=== PATIENT | male | born 2000 | race Caucasian/White ===

== ENCOUNTER 2021-12-29 18:40 | Emergency (ER) | payer SELFPAY ==
--- NOTE | 2021-12-29 19:31 | RAD REPORT ---
EXAM DESCRIPTION: RAD - Hand Right 3 View - 12/29/2021 7:20 pm CLINICAL HISTORY: Right hand pain status post injury FINDINGS: No fracture or dislocation is seen.
--- NOTE | 2021-12-29 19:48 | ER ---
Nurse's Notes [facility] Name: Tobin Johnson Age: 21 yrs Sex: Male : 2000 Arrival Date: 12/29/2021 Time: 18:43 Bed 11 Private MD: Diagnosis: Contusion of right hand;Abrasion of right hand Presentation: 12/29 18:47 Chief complaint: Patient states: Shut R hand in gate door 1 hour [employer]. Abrasions to 4th ll1 and 5th digits. Concerned 5th digit may be broken. Coronavirus screen: Vaccine status: Patient reports being unvaccinated. Client denies travel out of the [place] in the last 14 days. At this time, the client does not indicate any symptoms associated with coronavirus-19. Ebola Screen: Patient denies travel to an Ebola-affected area in the 21 days before illness onset. Initial Sepsis Screen: Does the patient meet any 2 criteria? No. Patient's initial sepsis screen is negative. Does the patient have a suspected source of infection? Yes: Skin breakdown/wound. Risk Assessment: Do you want to hurt yourself or someone else? Patient reports no desire to harm self or others. Onset of symptoms was December 29, 2021. 18:47 Method Of Arrival: Ambulatory ll1 18:47 Acuity: JIMMY 4 ll1 Triage Assessment: 18:49 General: Appears uncomfortable, Behavior is calm, cooperative, appropriate for age. ll1 Pain: Complains of pain in right hand Quality of pain is described as aching. Musculoskeletal: Reports pain in right hand. Injury Description: Crush injury. Historical: - Allergies: 18:48 No Known Allergies; ll1 - PMHx: 18:48 None; ll1 - PSHx: 18:48 femur repair; ll1 - Immunization history:: Client reports receiving the 2nd dose of the Covid vaccine, Last tetanus immunization: < 10 years ago. - Social history:: Smoking status: Patient reports the use of cigarette tobacco products, denies chronic smoking, but will smoke occasionally. Screenin:54 Abuse screen: Denies threats or abuse. Denies injuries from another. Nutritional ph screening: No deficits noted. Tuberculosis screening: No symptoms or risk factors identified. Fall Risk None identified. Assessment: 19:53 General: Appears in no apparent distress. comfortable, Behavior is calm, cooperative, ph appropriate for age. Pain: Complains of pain in right hand. Neuro: No deficits noted. Derm: Skin is intact, Skin is pink, warm \T\ dry. Musculoskeletal: Circulation, motion, and sensation intact. Injury Description: Laceration sustained to dorsal aspect of middle phalanx of right middle finger, dorsal aspect of middle phalanx of right ring finger and dorsal aspect of middle phalanx of right little finger is superficial, 0.5 to 2.5 cm long, not bleeding. Vital Signs: 18:47 BP 145 / 79; Pulse 88; Resp 16; Temp 98.7; Pulse Ox 99% ; Weight 102.06 kg; Height 6 ll1 ft. 0 in. (182.88 cm); Pain 5/10; 18:47 Body Mass Index 30.52 (102.06 kg, 182.88 cm) ll1 ED Course: 18:43 Patient arrived in ED. mr 18:48 Triage completed. ll1 18:49 Arm band placed on. ll1 18:57 E[facility] Shelton [facility]NP-C [facility] kb 18:57 Berhane Tucker MD is Attending Physician. kb 19:22 Hand Right 3 View XRAY In Process Unspecified. EDMS 19:53 No provider procedures requiring assistance completed. Patient did not have IV access ph during this emergency room visit. Wound care: located on right hand was cleaned with Hibiclens, dressed with steri-strips, Patient tolerated well. 19:54 Patient has correct armband on for positive identification. ph Administered Medications: No medications were administered Medication: 19:54 VIS not applicable for this client. ph Outcome: 19:47 Discharge ordered by . kb 19:54 Discharged to home ambulatory. ph 19:54 Condition: good 19:54 Discharge instructions given to patient, Instructed on discharge instructions, follow up and referral plans. Demonstrated understanding of instructions, follow-up care. 19:55 Patient left the ED. ph Signatures: Dispatcher [employer] EDMS Erika Shelton FNP-C FNP-Ckb Rivera, Mary Lizzie Rogers RN RN ph Ming Sheriff RN RN ll1
--- NOTE | 2021-12-29 19:48 | EDPHYS ---
Physician Documentation [facility] Name: Tobin Johnson Age: 21 yrs Sex: Male : 2000 Arrival Date: 12/29/2021 Time: 18:43 Bed 11 Private MD: ED Physician Berhane Tucker HPI: 12/29 19:50 This 21 yrs old Male presents to ER via Ambulatory with complaints of Hand Injury. kb 19:50 The patient or guardian reports a contusion, pain. The complaints affect the dorsal kb aspect of proximal phalanx of right ring finger and dorsal aspect of proximal phalanx of right middle finger and dorsal aspect of proximal phalanx of right index finger. Context: The problem was sustained outdoors, resulted from shut gate on hand. Onset: The symptoms/episode began/occurred today. Modifying factors: The symptoms are alleviated by nothing, the symptoms are aggravated by nothing. Associated signs and symptoms: The patient has no apparent associated signs or symptoms. Severity of symptoms: At their worst the symptoms were mild, in the emergency department the symptoms are unchanged. The patient has not experienced similar symptoms in the past. The patient has not recently seen a physician. Historical: - Allergies: 18:48 No Known Allergies; ll1 - PMHx: 18:48 None; ll1 - PSHx: 18:48 femur repair; ll1 - Immunization history:: Client reports receiving the 2nd dose of the Covid vaccine, Last tetanus immunization: < 10 years ago. - Social history:: Smoking status: Patient reports the use of cigarette tobacco products, denies chronic smoking, but will smoke occasionally. ROS: 19:49 Constitutional: Negative for fever, chills, and weight loss. kb 19:49 Skin: Positive for abrasion(s), of the dorsal aspect of proximal phalanx of right index finger, dorsal aspect of proximal phalanx of right middle finger and dorsal aspect of proximal phalanx of right ring finger. 19:49 All other systems are negative. Exam: 19:50 Constitutional: This is a well developed, well nourished patient who is awake, alert, kb and in no acute distress. Head/Face: Normocephalic, atraumatic. ENT: Moist Mucous membranes Respiratory: Respirations even and unlabored. No increased work of breathing. Talking in full sentences MS/ Extremity: Pulses equal, no cyanosis. Neurovascular intact. Full, normal range of motion. Neuro: Awake and alert, GCS 15, oriented to person, place, time, and situation. Moves all extremities. Normal gait. Psych: Awake, alert, with orientation to person, place and time. Behavior, mood, and affect are within normal limits. 19:50 Skin: injury, abrasion(s), small abrasion noted, of the dorsal aspect of proximal phalanx of right ring finger and dorsal aspect of proximal phalanx of right middle finger and dorsal aspect of proximal phalanx of right index finger. Vital Signs: 18:47 BP 145 / 79; Pulse 88; Resp 16; Temp 98.7; Pulse Ox 99% ; Weight 102.06 kg; Height 6 ll1 ft. 0 in. (182.88 cm); Pain 5/10; 18:47 Body Mass Index 30.52 (102.06 kg, 182.88 cm) ll1 MDM: 18:58 Patient medically screened. kb 19:46 Data reviewed: vital signs, nurses notes. Data interpreted: Pulse oximetry: on room air kb is 99 %. Interpretation: normal. Counseling: I had a detailed discussion with the patient and/or guardian regarding: the historical points, exam findings, and any diagnostic results supporting the discharge/admit diagnosis, radiology results, the need for outpatient follow up, a family practitioner, to return to the emergency department if symptoms worsen or persist or if there are any questions or concerns that arise at home. 12/29 18:51 Order name: Hand Right 3 View XRAY; Complete Time: 19:38 ll1 Administered Medications: No medications were administered Disposition: 12/30 00:09 Co-signature as Attending Physician, Berhane Tucker MD. rn Disposition Summary: 12/29/21 19:47 Discharge Ordered Location: Home kb Condition: Stable kb Diagnosis - Contusion of right hand kb - Abrasion of right hand kb Followup: kb - With: Emergency Department - When: As needed - Reason: Worsening of condition Followup: kb - With: Private Physician - When: 2 - 3 days - Reason: Recheck today's complaints, Continuance of care, Re-evaluation by your physician Discharge Instructions: - Discharge Summary Sheet kb - Hand Contusion, [id number] kb - Abrasion, [id number] kb Forms: - Medication Reconciliation Form kb - Thank You Letter kb - Antibiotic Education kb - Prescription Opioid Use kb Signatures: Dispatcher [employer] Erika Cortez, CONCESSION MANAGER-C CONCESSION MANAGER-Berhane Erazo MD MD rn Lewis, Lynsay, RN RN ll1
[2021-12-29 20:00] VITALS: BP 145/79; TEMP 98.7; O2SAT 99
== END 2021-12-29 19:55 | disposition home or self-care (01) ==
LOC: ER 18:40
DX: S60.511A Abrasion of right hand, initial encounter (principal); F17.210 Nicotine dependence, cigarettes, uncomplicated
CPT/HCPCS: 99283